=== PATIENT | male | born 1960 | race Caucasian/White ===

== ENCOUNTER 2016-03-20 08:57 | Emergency (ER) | payer MEDICAID | END 2016-03-20 09:57 | disposition home or self-care (01) | LOC: ER 08:57 | DX: G47.00 Insomnia, unspecified (principal); F17.210 Nicotine dependence, cigarettes, uncomplicated ==

== ENCOUNTER 2016-03-21 08:35 | Emergency (ER) | payer MEDICAID | END 2016-03-21 09:54 | disposition home or self-care (01) | LOC: ER 08:35 | DX: F51.01 Primary insomnia (principal); F17.210 Nicotine dependence, cigarettes, uncomplicated ==

== ENCOUNTER 2016-03-28 08:05 | Emergency (ER) | payer MEDICAID | END 2016-03-28 08:38 | disposition left against medical advice (07) | LOC: ER 08:05 | DX: R55 Syncope and collapse (principal); S59.901A Unspecified injury of right elbow, initial encounter; F19.20 Other psychoactive substance dependence, uncomplicated ==